=== PATIENT | male | born 1995 | race Two or more races ===

== ENCOUNTER 2020-05-01 22:01 | Emergency (ER) | payer MEDICAID, OTHER ==
[~2020-05-01] VITALS: Ht 170.2 cm; Wt 90.7 kg
[2020-05-02 03:37] VITALS: BP 140/74
== END 2020-05-02 03:56 | disposition home or self-care (01) ==
LOC: ER 22:01 → EDBD 22:01 → ER 05-02 03:56
DX: S13.4XXA Sprain of ligaments of cervical spine, initial encounter (principal); S33.5XXA Sprain of ligaments of lumbar spine, initial encounter; V49.9XXA Car occupant (driver) (passenger) injured in unspecified traffic accident, initial encounter; Y93.89 Activity, other specified; Y92.89 Other specified places as the place of occurrence of the external cause; Y99.8 Other external cause status
CPT/HCPCS: 70450; 71250; 72125; 74176